=== PATIENT | male | born 1985 | race Caucasian/White ===

== ENCOUNTER 2017-04-27 18:59 | Emergency (ER) | payer SELFPAY ==
[~2017-04-27] VITALS: Ht 185.4 cm; Wt 109.0 kg
[2017-04-27 19:01] VITALS: BP 162/108; PULSE 61; RESP 24; TEMP 98.6; O2SAT 100
[2017-04-27 19:26] VITALS: BP 167/93; PULSE 64; RESP 22; O2SAT 100
[2017-04-27] MEDS ORDERED: LISI10TA3 PO (19:26)
[2017-04-27 19:30] VITALS: BP 167/93; PULSE 62; RESP 20; O2SAT 100
[2017-04-27] MEDS ORDERED: LORazepam 0.5 MG TAB PO ONE (19:45)
[2017-04-27] MEDS ORDERED: SODIUM CHLORIDE 0.9% FLUSH 10 ML FLUSH IVF PRN (19:45)
--- NOTE | 2017-04-27 19:49 | PD ---
HPI Chief Complaint: Respiratory Symptoms Time Seen by Provider: 19:42 Travel History International Travel<30 days: No Contact w/Intl Traveler<30days: No Traveled to known affect area: No History of Present Illness HPI 31-year-old male patient with previous history of intermittent dizzy episodes, hypertension, previously evaluated by cardiology without obvious etiology, here because he states that he was playing soccer today and after a few minutes started getting lightheaded, felt like he was going to pass out, getting short of breath, feeling discomfort in his throat. He states that this is similar to previous episodes as well. He states that it occurs intermittently. He denies being more stress than usual. He states that the symptoms are still continuing in the ER. He states that he had stopped taking his lisinopril about 8 days ago. Modifying Factors: None Associated Signs & Symptoms: Dizziness, shortness of breath, throat discomfort Risk Factors: Hypertension PFSH Past Medical History Hypertension: Yes Influenza Vaccination: No Social History Alcohol Use: No Tobacco Use: No Substance Use: No Allergies-Medications (Allergen,Severity, Reaction): Coded Allergies: No Known Allergies (Unverified , 04/27/17) Reported Meds & Prescriptions Reported Meds & Active Scripts Active Reported Lisinopril 10 Mg Tab 10 Mg PO DAILY Review of Systems Except as stated in HPI: all other systems reviewed are Neg Physical Exam Narrative GENERAL: Well-developed young male patient currently in mild distress. Awake and oriented 3. SKIN: Focused skin assessment warm/dry. HEAD: Atraumatic. Normocephalic. EYES: Pupils equal and round. No scleral icterus. No injection or drainage. ENT: No nasal bleeding or discharge. Mucous membranes pink and moist. Airway is intact. NECK: Trachea midline. No JVD. Supple. No significant cervical lymphadenopathy. CARDIOVASCULAR: Regular rate and rhythm. No murmur appreciated. RESPIRATORY: No accessory muscle use. Clear to auscultation. Breath sounds equal bilaterally. GASTROINTESTINAL: Abdomen soft, non-tender, nondistended. Hepatic and splenic margins not palpable. MUSCULOSKELETAL: No obvious deformities. No clubbing. No cyanosis. No edema. NEUROLOGICAL: Awake and alert. No obvious cranial nerve deficits. Motor grossly within normal limits. Normal speech. PSYCHIATRIC: Appropriate mood and affect; insight and judgment normal. Data Data Last Documented VS Vital Signs Date Time Temp Pulse Resp B/P (MAP) Pulse Ox O2 Delivery O2 Flow Rate FiO2 04/27/17 20:58 64 18 140/75 (96) 97 Room Air 04/27/17 19:01 98.6 Orders Orders Complete Blood Count With Diff (04/27/17 19:42) Basic Metabolic Panel (Bmp) (04/27/17 19:42) D-Dimer (04/27/17 19:42) Magnesium (Mg) (04/27/17 19:42) Iv Access Insert/Monitor (04/27/17:42) Electrocardiogram (04/27/17:42) Ecg Monitoring (04/27/17:42) Oximetry (04/27/17:42) Oxygen Administration (04/27/17:42) Chest, Single Ap (04/27/17:42) Sodium Chloride 0.9% Flush (Ns Flush) (04/27/17 19:45) Lorazepam (Ativan) (04/27/17 19:45) Ed Discharge Order (04/27/17 21:06) Labs Laboratory Tests Test 04/27/17 19:45 White Blood Count 10.2 TH/MM3 Red Blood Count 5.16 MIL/MM3 Hemoglobin 15.2 GM/DL Hematocrit 44.7 % Mean Corpuscular Volume 86.7 FL Mean Corpuscular Hemoglobin 29.5 PG Mean Corpuscular Hemoglobin Concent 34.0 % Red Cell Distribution Width 11.5 % Platelet Count 295 TH/MM3 Mean Platelet Volume 9.3 FL Neutrophils (%) (Auto) 61.9 % Lymphocytes (%) (Auto) 26.6 % Monocytes (%) (Auto) 9.2 % Eosinophils (%) (Auto) 1.0 % Basophils (%) (Auto) 1.3 % Neutrophils # (Auto) 6.4 TH/MM3 Lymphocytes # (Auto) 2.7 TH/MM3 Monocytes # (Auto) 0.9 TH/MM3 Eosinophils # (Auto) 0.1 TH/MM3 Basophils # (Auto) 0.1 TH/MM3 CBC Comment DIFF FINAL Differential Comment D-Dimer Quantitative (PE/DVT) LESS THAN 0.19 MG/L FEU Blood Urea Nitrogen 13 MG/DL Creatinine 1.10 MG/DL Random Glucose 89 MG/DL Calcium Level 9.5 MG/DL Magnesium Level 2.4 MG/DL Sodium Level 135 MEQ/L Potassium Level 3.6 MEQ/L Chloride Level 100 MEQ/L Carbon Dioxide Level 26.2 MEQ/L Anion Gap 9 MEQ/L Estimat Glomerular Filtration Rate 78 ML/MIN [facility] Medical Decision Making Medical Screen Exam Complete: Yes Emergency Medical Condition: Yes Medical Record Reviewed: Yes Interpretation(s) EKG shows sinus bradycardia rate of 51 bpm. No signs of acute ST-T changes. No signs of AB blocks. No signs of delta waves or QT prolongation. Laboratory Tests Test 04/27/17 19:45 Red Cell Distribution Width 11.5 % (11.6-17.2) Monocytes (%) (Auto) 9.2 % (0.0-8.0) Sodium Level 135 MEQ/L (136-145) Estimat Glomerular Filtration Rate 78 ML/MIN (>89) Last 24 hours Impressions Chest X-Ray 04/27/171941 Signed Impressions: Service Date/Time: Thursday, April 27, 2017 19:52 - CONCLUSION: The lungs are clear. Jg Lazo MD Differential Diagnosis Dizziness, shortness of breath: Anxiety attack versus dysrhythmias versus dehydration versus metabolic issues Narrative Course EKG shows some bradycardia but otherwise was unremarkable for significant dysrhythmias. His heart rate was in the 60s in the ER. He was given a small dose of Ativan in the ER. Symptoms continue to subside in the ER. Lab work did not show significant left light abnormalities. Chest x-ray was otherwise unremarkable. D-dimer is negative. At this point, my plan would be to release him with follow-up to primary care physician. Return for new issues as needed. The plan has discussed with him and he states understanding. He should avoid strenuous activity for now. Diagnosis Primary Impression: Dizziness Disposition: 01 DISCHARGE HOME Condition: Stable Sarahi Elias MD Apr 27, 2017 19:49
[2017-04-27 20:02] VITALS: BP 156/97; PULSE 55; RESP 20; O2SAT 99
[2017-04-27 20:03] LABS: AUTOMATED NEUTROPHIL # 6.4 TH/MM3 (1.8-7.7); BASOPHIL # 0.1 TH/MM3 (0-0.2); BASOPHIL % 1.3 % (0.0-2.0); EOSINOPHIL # 0.1 TH/MM3 (0-0.4); HEMATOCRIT 44.7 % (39.0-51.0); HEMOGLOBIN 15.2 GM/DL (13.0-17.0); LYMPH % 26.6 % (9.0-44.0); LYMPHOCYTE # 2.7 TH/MM3 (1.0-4.8); MEAN CELL VOLUME 86.7 FL (80.0-100.0); MEAN CORPUSCULAR HEMOGLOBIN 29.5 PG (27.0-34.0); MEAN PLATELET VOLUME 9.3 FL (7.0-11.0); MONO % 9.2 % (0.0-8.0); MONOCYTE # 0.9 TH/MM3 (0-0.9); NEUT % 61.9 % (16.0-70.0); PLATELET COUNT 295 TH/MM3 (150-450); RED BLOOD COUNT 5.16 MIL/MM3 (4.50-5.90); RED CELL DISTRIBUTION WIDTH 11.5 % (11.6-17.2); WHITE BLOOD COUNT 10.2 TH/MM3 (4.0-11.0)
[2017-04-27 20:12] LABS: BICARBONATE 26.2 MEQ/L (21.0-32.0); CALCIUM 9.5 MG/DL (8.5-10.1); MAGNESIUM 2.4 MG/DL (1.5-2.5)
--- NOTE | 2017-04-27 20:13 | RADRPT ---
EXAM DATE/TIME: 04/27/2017 19:52 [facility] COMPARISON: No previous studies available for comparison. INDICATIONS : Short of breath. MEDICAL HISTORY : Hypertension. SURGICAL HISTORY : None. ENCOUNTER: Initial ACUITY: 1 day PAIN SCORE: 7/10 LOCATION: Bilateral chest FINDINGS: A single view of the chest demonstrates the lungs to be symmetrically aerated without evidence of mas s, infiltrate or effusion. No evidence of pneumothorax. The cardiomediastinal contours are unremarka ble. Osseous structures are intact. CONCLUSION: The lungs are clear. Jg Lazo MD on April 27, 2017 at 20:11 Board Certified Radiologist. This report was verified electronically.
[2017-04-27 20:16] LABS: CREATININE 1.1 MG/DL (0.60-1.30)
[2017-04-27 20:58] VITALS: BP 140/75; PULSE 64; RESP 18; O2SAT 97
[2017-04-27 21:24] VITALS: BP 142/72
--- NOTE | 2017-04-28 00:36 | EKG ---
Date Performed: 04/27/2017 Time Performed: 19:49:57 PTAGE: 31 years EKG: SINUS BRADYCARDIA NONSPECIFIC ST & T-WAVE ABNORMALITY BORDERLINE ECG NO PREVIOUS TRACING DOCTOR: Micky Roa Interpretating Date/Time 04/28/2017 00:35:55
== END 2017-04-27 21:41 | disposition home or self-care (01) ==
LOC: PHED 18:59
DX: R42 Dizziness and giddiness (principal); I10 Essential (primary) hypertension; R94.31 Abnormal electrocardiogram [ECG] [EKG]
CPT/HCPCS: 71045; 80048; 83735; 85025; 85379; 93005; 99285